=== PATIENT | male | born 1950 | race Caucasian/White ===

== ENCOUNTER → 2017-01-27 | Outpatient (CLI) | payer MEDICARE, OTHER ==
[~2017-01-27] MED LIST: ASPI81CH6 CHEW; BENA40TA PO; CYMB60CA PO; ENOX40P SQ; FIOR30CA12 PO; NIFE20 PO; PERC5TAB12 PO; TERA2CAP3 PO; TEST1INJ3 IM; TRAM50TA PO
[2017-01-27 11:12] LABS: BASOPHIL % 0.6 % (0.0-2.0); EOSINOPHIL # 0.1 TH/MM3 (0-0.4); EOSINOPHIL % 1.5 % (0.0-4.0); HEMATOCRIT 48.9 % (39.0-51.0); HEMO FLAGS DIFF FINAL; LYMPH % 26.4 % (9.0-44.0); LYMPHOCYTE # 1.7 TH/MM3 (1.0-4.8); MEAN CELL VOLUME 94.4 FL (80.0-100.0); MEAN CORPUSCULAR HGB CONC 33.9 % (32.0-36.0); MONO % 8.9 % (0.0-8.0); NEUT % 62.6 % (16.0-70.0); PLATELET COUNT 171 TH/MM3 (150-450); RED BLOOD COUNT 5.18 MIL/MM3 (4.50-5.90); RED CELL DISTRIBUTION WIDTH 13.7 % (11.6-17.2); WHITE BLOOD COUNT 6.4 TH/MM3 (4.0-11.0)
[2017-01-27 11:26] LABS: APTT (PATIENT) 28.9 SEC (24.3-30.1); INTERNATIONAL NORMALIZED RATIO 1.1 RATIO; PROTHROMBIN TIME - PATIENT 11.7 SEC (9.8-11.6)
[2017-01-27 11:48] LABS: ANION GAP 6 MEQ/L (5-15); AST (GOT) 21 U/L (15-37); BLOOD UREA NITROGEN 14 MG/DL (7-18); CHLORIDE 103 MEQ/L (98-107); GLOMERULAR FILTRATION RATE 47 ML/MIN (>89); GLUCOSE,FASTING 86 MG/DL (74-99); POTASSIUM 5.5 MEQ/L (3.5-5.1); SODIUM (NA) 139 MEQ/L (136-145)
[2017-01-27 11:49] LABS: ALT (GPT) 33 U/L (12-78)
[2017-01-27 11:51] LABS: ALKALINE PHOSPHATASE 59 U/L (45-117); TOTAL BILIRUBIN ADULT 0.7 MG/DL (0.2-1.0)
[2017-01-27 11:58] LABS: WESTERGREN SEDIMENTATION RATE 1 mm/hr (0-20)
--- NOTE | 2017-01-27 13:10 | RADRPT ---
EXAM DATE/TIME: 01/27/2017 11:31 [facility] COMPARISON: No previous studies available for comparison. INDICATIONS : Evaluate for pneumonia, pneumothorax ot comminucable disease. Pre-op left hip. MEDICAL HISTORY : Hypertension. SURGICAL HISTORY : None. ENCOUNTER: Initial ACUITY: 1 day PAIN SCORE: 0/10 LOCATION: chest FINDINGS: The heart and mediastinal structures are normal. The pulmonary vascular pattern is normal. The lungs are clear. Degenerative changes are noted throughout the thoracic spine. CONCLUSION: 1. No acute cardiopulmonary disease. 2. Degenerative changes within the thoracic spine. Micky Morales MD on January 27, 2017 at 13:07 Board Certified Radiologist. This report was verified electronically.
[2017-01-27 13:16] LABS: BLOOD, URINE NEG (NEG); GLUCOSE,URINE NEG (NEG); KETONE, URINE NEG (NEG); NITRITE,URINE NEG (NEG); PH, URINE 6.5 (5.0-8.5); URINE COLOR LIGHT-YELLOW (YELLW/STRAW)
[2017-01-27 13:17] LABS: COMMENT (UR) CULT NOT INDICATED; CULTURE IF INDICATED CULT NOT INDICATED
== END ==
LOC: CPRE 10:11
PROVIDERS: ATTEND Orthopaedic Surgery Sports Medicine
DX: Z01.811 Encounter for preprocedural respiratory examination (principal); Z01.812 Encounter for preprocedural laboratory examination; Z01.818 Encounter for other preprocedural examination; M25.50 Pain in unspecified joint; M16.12 Unilateral primary osteoarthritis, left hip; Z96.60 Presence of unspecified orthopedic joint implant; Z79.01 Long term (current) use of anticoagulants
CPT/HCPCS: 36415; 71020; 80053; 81001; 85025; 85610; 85652; 85730

== ENCOUNTER 2017-02-17 06:09 | Inpatient (IN) | payer MEDICARE, OTHER ==
[~2017-02-17] VITALS: Ht 170.2 cm; Wt 97.8 kg
[~2017-02-17 06:09] MED LIST changes: -ASPI81CH6 CHEW; -ENOX40P SQ; -PERC5TAB12 PO; -TRAM50TA PO
[2017-02-17] MEDS ORDERED: PERC5TAB12 PO (07:10)
[2017-02-17] MEDS ORDERED: ENOX40P SQ (07:10)
[2017-02-17] MEDS ORDERED: ASPI81CH6 CHEW (07:11)
[2017-02-17] MEDS ORDERED: Post-op Orders (for Pharmacy) XX ONE (07:15)
[2017-02-17] MEDS ORDERED: BISACODYL 10 MG SUPP RECTAL PRN (07:15)
[2017-02-17] MEDS ORDERED: oxyCODONE/ACETAMINOPHEN 5 MG/325 MG TAB PO PRN ×2 (07:15)
[2017-02-17] MEDS ORDERED: ZOLPIDEM TARTRATE 5 MG TAB PO PRN (07:15)
[2017-02-17] MEDS ORDERED: diphenhydrAMINE HCL 50 MG/ML VIAL IV PUSH PRN (07:15)
[2017-02-17] MEDS ORDERED: ONDANSETRON HCL 4 MG/2 ML VIAL IVP PRN (07:15)
[2017-02-17] MEDS ORDERED: METOPROLOL TARTRATE 25 MG TAB PO PRN (07:45)
[2017-02-17] MEDS ORDERED: CHLORHEXIDINE GLUCONATE 2 % 1 PACK (2 CLOTHS) TOPICAL PRN (07:45)
[2017-02-17] MEDS ORDERED: POVIDONE IODINE 5% (ANTISEPSIS KIT) 4 APPLICATIONS EACH NARE PRN (07:45)
[2017-02-17] MEDS ORDERED: LACTATED RINGER'S 1000 ML IV PRN (07:45)
[2017-02-17] MEDS ORDERED: SODIUM CHLORID 0.9% 500 ML IV PRN (07:45)
[2017-02-17] MEDS ORDERED: VANCOMYCIN 1000 MG/NS 250 ML (for <70 kg) IV SCH ×2 (08:00)
[2017-02-17] MEDS ORDERED: POVIDONE IODINE 7.5% SCRUB 118 ML BOTTLE TOPICAL SCH (08:00)
[2017-02-17] MEDS ORDERED: EXPAREL PERI-ARTICULAR INJECTION (TOTAL VOL. 60 ML) P-ARTICULR SCH ×2 (08:00)
[2017-02-17] MEDS ORDERED: CHLORHEXIDINE GLUCONATE 4% SOLN 120 ML BTL TOPICAL SCH (08:00)
[2017-02-17] MEDS ORDERED: DEXAMETHASONE SOD PHOS 20 MG/5 ML VIAL IV ONE (08:00)
[2017-02-17] MEDS ORDERED: ceFAZolin 2 GM PREMIX 50 ML IV SCH (08:00)
[2017-02-17] MEDS ORDERED: TRANEXAMIC PERI-ARTICULAR 3,000 MG/NS 100 ML P-ARTICULR SCH ×2 (08:00)
[2017-02-17] MEDS ORDERED: ACETAMINOPHEN 1000 MG/100 ML 100 ML IV ONE (08:56)
[2017-02-17] MEDS: TERAZOSIN HCL 1 MG CAP PO SCH (09:00)
[2017-02-17] MEDS: NIFEdipine 20 MG CAP PO SCH (09:00)
[2017-02-17] MEDS ORDERED: GENTAMICIN SULFATE 80 MG/2 ML VIAL ONE (09:19)
[2017-02-17] MEDS: TRANEXAMIC ACID IV SCH ×2 (09:35→11:09)
[2017-02-17] MEDS: SODIUM CHLORIDE 0.9% IV SCH ×2 (09:35→11:09)
[2017-02-17] MEDS ORDERED: ROCURONIUM INJ 50 MG/5 ML SYRINGE IV PUSH ONE (12:00)
[2017-02-17] MEDS ORDERED: PROPOFOL 200 MG/20 ML AMP IV ONE (12:00)
[2017-02-17] MEDS ORDERED: LIDOCAINE HCL 1% PF 5 ML SYRINGE OTHER ONE (12:00)
[2017-02-17] MEDS ORDERED: GLYCOPYRROLATE 1 MG/5 ML SYRINGE IV PUSH ONE (12:00)
[2017-02-17] MEDS ORDERED: LACTATED RINGER'S 1000 ML INJ 1,000 ML IV ONE (12:00)
[2017-02-17] MEDS ORDERED: MORPHINE SULFATE 4 MG/ML INJ IV ONE (12:00)
[2017-02-17] MEDS ORDERED: VECURONIUM BROMIDE 20 MG VIAL IV ONE (12:00)
[2017-02-17] MEDS ORDERED: ONDANSETRON HCL 4 MG/2 ML VIAL IV PUSH ONE (12:00)
[2017-02-17] MEDS ORDERED: MIDAZOLAM HCL 2 MG/2 ML VIAL IV ONE (12:00)
[2017-02-17] MEDS ORDERED: ePHEDrine/NS 25 MG/5 ML SYR IV ONE (12:00)
[2017-02-17] MEDS ORDERED: NEOSTIGMINE 5 MG/5 ML SYRINGE IV PUSH ONE (12:00)
--- NOTE | 2017-02-17 13:03 | MP ---
cc: OMID SEGURA M.D. DATE OF SURGERY 02/17/2017 PREOPERATIVE DIAGNOSIS Left hip osteoarthritis POSTOPERATIVE DIAGNOSES Left hip osteoarthritis PROCEDURE Left total hip arthroplasty SURGEON Dr. Omid Segura DIESEL TRUCK CRANE OPERATOR LISA Montero ANESTHESIA General ESTIMATED BLOOD LOSS 200 CC COMPLICATIONS None IMPLANTS USED DePuy Corail size 12 Press-Fit standard offset femoral stem, size 54 solid pinnacle Gription cup, 36 mm highly cross-linked neutral polyethylene liner, 36 mm ceramic head, +1.5 neck. JUSTIFICATION This patient is a 66-year-old male with a history of severe end-stage osteoarthritis involving the left hip. He has severe disabling pain with standing, walking, ambulation, weight-bearing activities, severe pain at rest that does not interfere with activities of daily living. He has failed greater than three months of nonoperative conservative treatment to include medication, therapy, ambulatory assisted aids, home exercise program, activity modification, weight loss. Weight loss. X-RAYS Left hip reveal severe end-stage osteoarthritis with uxde-ed-ereb joint space narrowing, subchondral sclerosis, subchondral cyst osteophyte formation with subluxation. The patient was counseled as to the risks, benefits and alternative to a total hip arthroplasty. The risks discussed which include, but were not limited to anesthesia, bleeding, infection, damage to nerves, blood vessels, pain, stiffness, fracture-dislocation, leg length discrepancies, blood clots, pulmonary embolism, and even . The patient's pain is severe. He favors the benefits over the risks and did wish to proceed with surgery. PROCEDURE IN DETAIL A written consent was obtained. The patient identified by name, taken to the operating room, placed supine position and general anesthesia was administered, as well as two grams of IV Ancef and one gram of IV vancomycin. The left hip and left lower extremity were prepped and draped using Isopropyl alcohol, Hibiclens solution and Chloraprep solution. After time-out was performed, a longitudinal incision was made over the anterolateral aspect of the left hip. The fascial layer was incised. Dissection was carried over the tensor fascia noris and beneath the rectus femoris to allow exposure of the anterior hip capsule. A capsulotomy incision was performed. An oscillating saw was used for the femoral neck cut. The osteoarthritic femoral head/neck component was remove. A 10 blade scalpel was used to excise the labrum. Sequential reaming began at size 49 and was carried through to size 54. Subsequently, a solid pinnacle Gription cup was implanted in approximately 45 degrees of abduction, 10 degree of anteversion. There was good purchase and fixation on insertion of the cup. A screw hole eliminator was placed followed by the neutral liner. The liner was impacted in place and tested for stability. Attention turned to the femur where the leg was externally rotated, extended and adducted. The capsule was released off the under surface of the greater trochanter to allow for elevation and lateralization of the femur. A box cutting osteotome was used to gain entrance into the intramedullary canal. This was followed by a sequential broaching up to size 12. A 12 calcar planer was used to plane the calcar. Trial head neck combinations were evaluated and final components were implanted with the current components. The leg could achieve full extension with external rotation of 70 degrees and extension down to the ground without evidence and anterior instability or impingement. Fluoroscopic imaging showed appropriate implantation of components. The soft tissue tension felt appropriate. The surgical wound was thoroughly irrigated with sterile saline pulse lavage antibiotic impregnated solution. The fascia was closed with #1 Vicryl suture, subcutaneous layer 2-0 Vicryl suture. Skin was closed Dermabond. Sterile dressings applied. The patient tolerated the procedure well. No intraoperative complications noted. Syd Yip, Physician Small Parts Assembler Certified, was present during the entire procedure to include patient positioning and the procedure itself. The medical necessity of a physician bilingual legal assistant was indicated in this case due to the complexity of the procedure. He assisted with appropriate manipulation of the leg and also retraction of muscle, tendon, bone and nerve root structures. He assisted with preparation of the bone and also implantation of the prosthetic replacement. MD WILLEM Spears/BORIS /12:34 PM /12:39 PM
[2017-02-17] MEDS: SODIUM CHLOR 0.9% 1000 ML INJ 1,000 ML IV SCH (13:15)
--- NOTE | 2017-02-17 13:17 | RADRPT ---
EXAM DATE/TIME: 02/17/2017 10:12 [facility] COMPARISON: No previous studies available for comparison. INDICATIONS : Left total hip arthroplasty. MEDICAL HISTORY : Unobtainable. SURGICAL HISTORY : Right total hip arthroplasty. ENCOUNTER: Initial ACUITY: 1 day PAIN SCORE: Non-responsive. LOCATION: Left hip FINDINGS: A two view examination of the left hip was performed. Post surgical changes following hip replacement are noted. Acetabular and femoral components are well seated and satisfactorily aligned. There are n o acute bony abnormalities. CONCLUSION: Satisfactory postoperative appearance of left hip following replacement. Stanley Ulloa MD on February 17, 2017 at 13:14 Board Certified Radiologist. This report was verified electronically.
[2017-02-17] MEDS ORDERED: *morphine SULFATE 8 MG/ML PERIprocedure ONLY ONE ×2 (13:43→14:01)
[2017-02-17] MEDS ORDERED: DO NOT ADM ANY ANTICOAGULANT DRUGS PRN (13:45)
--- NOTE | 2017-02-17 14:00 | PD.CONS ---
HPI Service [facility] Consult Requested By Reason for Consult medical management Primary Care Physician Criss Grayson MD Diagnoses: History of Present Illness patient is a 66 y/o male with history of osteoarthritis, hypertension, sleep apnea who underwent left total hip arthritis today. at the time of my evaluation he was resting comfortably with no distress. pain was mild. he was complaining of mild nausea. otherwise no other post-op acute issues. Review of Systems Constitutional: DENIES: Fever, Weight loss, Chills, Night Sweats Eyes: DENIES: Blurred vision, Diplopia, Vision loss, Double Vision Ears, nose, mouth, throat: DENIES: Tinnitus, Vertigo, Throat pain, Epistaxis Respiratory: DENIES: Apneas, Cough, Snoring, Wheezing, Hemoptysis, Sputum production, Shortness of breath Cardiovascular: DENIES: Chest pain, Palpitations, Syncope, Dyspnea on Exertion , PND, Lower Extremity Edema, Orthopnea, Claudication Gastrointestinal: COMPLAINS OF: Nausea, DENIES: Abdominal pain, Black stools, Bloody stools, Constipation, Diarrhea, Vomiting, Difficulty Swallowing, Anorexia Genitourinary: DENIES: Urinary frequency, Urgency, Hematuria, Dysuria Musculoskeletal: COMPLAINS OF: Joint pain (left hip), DENIES: Muscle aches, Stiffness, Joint Swelling Integumentary: DENIES: Rash Neurologic: DENIES: Abnormal gait, Headache, Localized weakness, Paresthesias, Seizures, Speech Problems, Tremor, Poor Balance Psychiatric: DENIES: Anxiety, Confusion, Mood changes, Depression, Hallucinations, Agitation, Suicidal Ideation, Homicidal Ideation, Delusions Past Family Social History Allergies: Coded Allergies: hydrocodone (Verified Adverse Reaction, Severe, Confusion, 02/17/17) Past Medical History hypertension sleep apnea osteoarthritis Past Surgical History right hip surgery Reported Medications cymbalta nifedipine testosterone terazosin Active Ordered Medications Current Medications Duloxetine HCl (Cymbalta Dr) 60 mg HS PO ; Start 02/17/17 at 21:00; Status UNV Nifedipine (Procardia) 60 mg DAILY PO ; Start 02/17/17 at 09:00; Status UNV Terazosin HCl (Hytrin) 2 mg DAILY PO ; Start 02/17/17 at 09:00; Status UNV Non-Formulary Medication 40 mg DAILY PO ; Start 02/17/17 at 09:00; Status UNV Sodium Chloride 1,000 ml @ 100 mls/hr Q10H IV ; Start 02/17/17 at 07:07 Cefazolin Sodium/ Dextrose 50 ml @ 100 mls/hr Q6H IV ; Start 02/17/17 at 07:15 ; Stop 02/17/17 at 19:44; Status UNV Miscellaneous Information (Post-op Orders (for Pharmacy)) STAT ONCE XX ; Start 02/17/17 at 07:15; Stop 02/17/17 at 07:16; Status UNV Enoxaparin Sodium (Lovenox Inj) 40 mg Q24H SQ ; Start 02/17/17 at 07:15; Stop 02/26/17 at 07:16; Status UNV Morphine Sulfate (Morphine Inj) 3 mg Q3H PRN IV PUSH Pain >7 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; Start 02/17/17 at 07:15; Status UNV Oxycodone/ Acetaminophen (Percocet 5-325 Mg) 1 tab Q4H PRN PO PAIN LESS THAN 5 ON SCALE; Start 02/17/17 at 07:15; Status UNV Oxycodone/ Acetaminophen (Percocet 5-325 Mg) 2 tab Q4H PRN PO PAIN SCALE 5 TO 10; Start 02/17/17 at 07:15; Status UNV Multivitamins/ Minerals Therapeutic (Theragran M Tab) 1 tab BID PO ; Start 02/23 at 21:00; Stop 04/19/17 at 20:59; Status UNV Ondansetron HCl (Zofran Inj) 4 mg Q6H PRN IVP NAUSEA OR VOMITING; Start at 07:15 Docusate Sodium (Colace) 100 mg BID PO ; Start 02/18/17 at 21:00 Zolpidem Tartrate (Ambien) 5 mg HS PRN PO SLEEP; Start 02/17/17 at 07:15 Bisacodyl (Dulcolax Supp) 10 mg DAILY PRN MS CONSTIPATION; Start 02/17/17 at 07:15; Status UNV Diphenhydramine HCl (Benadryl Inj) 25 mg Q6H PRN IV PUSH ITCHING; Start at 07:15; Status UNV Lactated Ringer's 1,000 ml @ 30 mls/hr Q24H PRN IV SEE LABEL COMMENTS Last administered on 02/17/17 08:00; Start 02/17/17 at 07:45; Stop 02/17/17 at 11 :33; Status DC Sodium Chloride 500 ml @ 30 mls/hr [id number] PRN IV SEE LABEL COMMENTS; Start at 07:45; Stop 02/17/17 at 11:33; Status DC Metoprolol Tartrate (Lopressor) 25 mg CLINICAL PSYCHIATRIST PRN PO SEE LABEL COMMENTS; Start 02/17/17 at 07:45; Stop 02/20/17 at 07:44 Povidone Iodine (Betadine 5% Antisepsis Kit) 1 applic CLINICAL PSYCHIATRIST PRN EACH NARE SEE LABEL COMMENTS Last administered on 02/17/17 08:00; Start 02/17/17 at 07: 45; Stop 02/20/17 at 07:44 Chlorhexidine Gluconate (Chlorhexidine 2% Cloth) 3 pack CLINICAL PSYCHIATRIST PRN TOPICAL SEE LABEL COMMENTS Last administered on 02/17/17 08:00; Start 02/17/17 at 07: 45; Stop 02/20/17 at 07:44 Povidone Iodine (Betadine 7.5% Scrub) 1 applic ONCE TOPICAL Last administered on 02/17/17 08:00; Start 02/17/17 at 08:00; Stop 02/20/17 at 07:59 Chlorhexidine Gluconate (Hibiclens 4% Top Soln) 1 applic ONCE TOPICAL ; Start 02/17/17 at 08:00; Stop 02/20/17 at 07:59 Cefazolin Sodium/ Dextrose 50 ml @ 100 mls/hr CLINICAL PSYCHIATRIST IV Last administered on 02/17/17 09:32; Start 02/17/17 at 08:00; Stop 02/20/17 at 07:59 Vancomycin HCl 1000 mg/Sodium Chloride 250 ml @ 250 mls/hr CLINICAL PSYCHIATRIST IV Last administered on 02/17/17 09:33; Start 02/17/17 at 08:00; Stop 02/20/17 at 07 :59 Tranexamic Acid 1467 mg/Sodium Chloride 114.67 ml @ 200 mls/ hr ONCE IV Last administered on 02/17/17 09:35; Start 02/17/17 at 08:00; Stop 02/17/17 at 16 :00 Bupivacaine Liposome 20 ml/ Sodium Chloride 60 ml @ 120 mls/hr ONCE P-ARTICULR Last administered on 02/17/17 12:20; Start 02/17/17 at 08:00; Stop at 07:59 Tranexamic Acid 3000 mg/Sodium Chloride 130 ml @ 260 mls/hr ONCE P-ARTICULR Last administered on 02/17/17 12:18; Start 02/17/17 at 08:00; Stop 02/17/17 at 16:00 Dexamethasone Sodium Phosphate (Decadron Inj) 10 mg ONCE ONCE IV Last administered on 02/17/17 09:05; Start 02/17/17 at 08:00; Stop 02/17/17 at 08 :01; Status DC Acetaminophen 100 ml @ As Directed STK-MED ONCE IV ; Start 02/17/17 at 08:56; Stop 02/17/17 at 08:57; Status DC Gentamicin Sulfate (Gentamicin Inj) 240 mg STK-MED ONCE .ROUTE Last administered on 02/17/17 11:08; Start 02/17/17 at 09:19; Stop 02/17/17 at 09 :20; Status DC Miscellaneous Information ALL NURSING DEPARTME... UNSCH PRN .XX SEE LABEL COMMENTS; Start 02/17/17 at 13:45; Stop 02/18/17 at 13:44 Morphine Sulfate (*morphine INJ PERIprocedure ONLY) 8 mg STK-MED ONCE .ROUTE ; Start 02/17/17 at 13:43; Stop 02/17/17 at 13:44; Status DC Family History not relevant to this consult. Social History no smoking. drinks occasionally. Physical Exam Vital Signs Vital Signs Date Time Temp Pulse Resp B/P (MAP) Pulse Ox O2 Delivery O2 Flow Rate FiO2 02/17/17 13:15 97.8 50 16 93/59 (70) 93 Nasal Cannula 2 02/17/17 07:30 97.8 74 20 175/92 (119) 95 Physical Exam GENERAL: This is a well-nourished, well-developed patient, in no apparent distress. SKIN: No rashes, ecchymoses or lesions. Cool and dry. HEAD: Atraumatic. Normocephalic. No temporal or scalp tenderness. EYES: Pupils equal round and reactive. Extraocular motions intact. No scleral icterus. No injection or drainage. ENT: Nose without bleeding, purulent drainage or septal hematoma. Throat without erythema, tonsillar hypertrophy or exudate. Uvula midline. Airway patent. NECK: Trachea midline. No JVD or lymphadenopathy. Supple, nontender, no meningeal signs. CARDIOVASCULAR: Regular rate and rhythm without murmurs, gallops, or rubs. RESPIRATORY: Clear to auscultation. Breath sounds equal bilaterally. No wheezes , rales, or rhonchi. GASTROINTESTINAL: Abdomen soft, non-tender, nondistended. No hepato-splenomegaly , or palpable masses. No guarding. MUSCULOSKELETAL: Extremities without clubbing, cyanosis, or edema. No joint tenderness, effusion, or edema noted. No calf tenderness. Negative Homans sign bilaterally. NEUROLOGICAL: Awake and alert. Cranial nerves II through XII intact. Motor and sensory grossly within normal limits. Five out of 5 muscle strength in all muscle groups. Normal speech. Laboratory Laboratory Tests Test 02/17/17 07:18 Potassium Level 3.8 Result Diagram: 02/17/17 0718 Imaging Last Impressions Hip X-Ray 02/17/17 0000 Signed Impressions: Service Date/Time: Friday, February 17, 2017 10:12 - CONCLUSION: Satisfactory postoperative appearance of left hip following replacement. Stanley Ulloa MD Assessment and Plan Assessment and Plan A/P - osteoarthritis- s/p left total hip arthroplasty continue with pain control and rehab efforts- management per ortho. -hypertension; resumed home meds- continue to monitor BP and adjust the regimen as needed. -sleep apnea- continue CPAP. -DVT prophylaxis with Lovenox- per ortho. thank you for the consult. Discussed Condition With the patient and RN. Patricia Bill MD Feb 17, 2017 14:00
[2017-02-17] MEDS ORDERED: DIMETHICONE/OXYBENZONE/PADMIATE LIP BALM 4.25 GM TOPICAL ONE (14:06)
[2017-02-17] MEDS ORDERED: *HYDROmorphone PF 1 MG VIAL PERIprocedural Use ONLY ONE (14:46)
--- NOTE | 2017-02-17 14:50 | RADRPT ---
EXAM DATE/TIME: 02/17/2017 13:50 [facility] COMPARISON: No previous studies available for comparison. INDICATIONS : Post op total left hip. MEDICAL HISTORY : Hypertension. SURGICAL HISTORY : None. ENCOUNTER: Initial ACUITY: 1 day PAIN SCORE: 8/10 LOCATION: Left Hip FINDINGS: Examination of the left hip was performed with AP Pelvis. Postsurgical changes following left hip rep lacement are noted. Femoral and acetabular components are well seated in satisfactory alignment. AP view of the pelvis demonstrates a right hip prosthesis. There are no acute bony abnormalities. CONCLUSION: Satisfactory post operative appearance of the left hip status post replacement. Right hip prosthesis. No acute process. Stanley Ulloa MD on February 17, 2017 at 14:47 Board Certified Radiologist. This report was verified electronically.
[2017-02-17] MEDS: ceFAZolin 2 GM PREMIX 50 ML IV SCH ×2 (15:00→21:22)
[2017-02-17 17:00] VITALS: BP 108/64; PULSE 59; RESP 19; TEMP 96.4; O2SAT 91
[2017-02-17 20:19] VITALS: BP 117/59; PULSE 69; RESP 18; TEMP 97.6; O2SAT 92
[2017-02-17] MEDS: DULoxetine HCl DR 60 MG CAP PO SCH (21:22)
[2017-02-17] MEDS: MORPHINE SULFATE 4 MG/ML INJ IV PUSH PRN (21:23)
[2017-02-18] VITALS (7 sets, daily range): BP systolic 88–176; BP diastolic 72–101; PULSE 73–123; RESP 16–19; TEMP 96.7–98.9; O2SAT 92–94
[2017-02-18] MEDS: ceFAZolin 2 GM PREMIX 50 ML IV SCH ×2 (03:15→08:35)
[2017-02-18] MEDS: SODIUM CHLOR 0.9% 1000 ML INJ 1,000 ML IV SCH ×2 (03:17→23:07)
[2017-02-18] MEDS: MORPHINE SULFATE 4 MG/ML INJ IV PUSH PRN (06:35)
[2017-02-18] MEDS: NIFEdipine 20 MG CAP PO SCH (08:34)
[2017-02-18] MEDS: TERAZOSIN HCL 1 MG CAP PO SCH (08:35)
[2017-02-18 08:39] LABS: HEMATOCRIT 37.8 % (39.0-51.0); MEAN CELL VOLUME 93.8 FL (80.0-100.0); MEAN CORPUSCULAR HEMOGLOBIN 32.2 PG (27.0-34.0); MEAN CORPUSCULAR HGB CONC 34.4 % (32.0-36.0); PLATELET COUNT 126 TH/MM3 (150-450); RED BLOOD COUNT 4.03 MIL/MM3 (4.50-5.90); RED CELL DISTRIBUTION WIDTH 13.6 % (11.6-17.2); REVIEW FLAG FINAL; WHITE BLOOD COUNT 14.3 TH/MM3 (4.0-11.0)
[2017-02-18] MEDS: LISINOPRIL 20 MG TAB PO SCH (08:41)
--- NOTE | 2017-02-18 08:42 | PD.ORT.PN ---
Subjective Post Op Day #: 1 Subjective Remarks pain tolerable Objective Vitals Vital Signs Date Time Temp Pulse Resp B/P (MAP) Pulse Ox O2 Delivery O2 Flow Rate FiO2 02/18/17 03:16 97.9 95 18 137/72 (93) 92 02/18/17 00:02 98.4 73 18 129/75 (93) 93 02/17/17 20:19 97.6 69 18 117/59 (78) 92 02/17/17 17:00 96.4 59 19 108/64 (79) 91 02/17/17 15:30 62 16 120/58 (78) 98 Room Air 02/17/17 15:00 62 16 107/55 (72) 99 Room Air 02/17/17 14:30 56 16 109/67 (81) 100 02/17/17 14:15 56 16 101/56 (71) 100 Nasal Cannula 2 02/17/17 14:00 56 16 131/81 (98) 97 Nasal Cannula 2 02/17/17 13:45 54 16 97/55 (69) 95 Nasal Cannula 2 02/17/17 13:30 50 16 97/58 (71) 95 Nasal Cannula 2 02/17/17 13:15 97.8 50 16 93/59 (70) 93 Nasal Cannula 2 I/O 02/17/17 02/17/17 02/17/17 02/18/17 02/18/17 02/18/17 07:00 15:00 23:00 07:00 15:00 23:00 Intake Total 2000 ml 910 ml 2110 ml Output Total 600 ml 400 ml 375 ml Balance 1400 ml 510 ml 1735 ml Intake Oral 360 ml 480 ml IV Total 550 ml 1630 ml Other 2000 ml Output Urine Total 400 ml 400 ml 375 ml Estimated Blood Loss 200 ml # Bowel Movements 0 0 Result Diagram: 02/18/17 0739 02/17/17 0718 Objective Remarks in bed, nad dressing c/d/i neg homans nvi Assessment & Plan Ortho Post Op Day #: 1 Problem List: Assessment and Plan s/p L PEGGY wbat ok to maintain dressing unless saturated lovenox d/c planning home, patient going to start OP PT f/up dr. hayden 2 weeks Tamir Yip Feb 18, 2017 08:42
--- NOTE | 2017-02-18 08:47 | HHI.DCPOC ---
Discharge Care Plan Diagnosis: (1) Primary localized osteoarthrosis, pelvic region and thigh Your Health Problems Are: Difficulty with ADL Goals to Promote Your Health * To prevent worsening of your condition and complications * To maintain your health at the optimal level Directions to Meet Your Goals Take your medications as prescribed Follow your dietary instruction Follow activity as directed Keep your appointments as scheduled Take your immunizations and boosters as scheduled If your symptoms worsen call your PCP, if no PCP go to Urgent Care Center or Emergency Room Smoking is Dangerous to Your Health. Avoid second hand smoke Call the 24-hour hour crisis hotline for domestic abuse at Tamir Yip Feb 18, 2017 08:46
[2017-02-18] MEDS ORDERED: TRAM50TA PO (08:48)
[2017-02-18] MEDS ORDERED: ceFAZolin 2 GM PREMIX 50 ML IV ONE (09:00)
[2017-02-18] MEDS ORDERED: PNEUMOCOCCAL POLYVALENT INJ 25 MCG/0.5 ML SYR IM ONE (10:00)
[2017-02-18] MEDS: traMADol HCL 50 MG TAB PO PRN (11:02)
[2017-02-18] MEDS: ENOXAPARIN SODIUM 40 MG/0.4 ML SYRINGE SQ SCH (12:30)
--- NOTE | 2017-02-18 13:26 | HHI.PR ---
Subjective Remarks in no acute distress. pain is moderate. had some nausea and emesis earlier. BP trend noted. overall not feeling good today. d/w the RN. Objective Vitals Vital Signs Date Time Temp Pulse Resp B/P (MAP) Pulse Ox O2 Delivery O2 Flow Rate FiO2 02/18/17 11:07 93 21 02/18/17 08:00 97.0 82 16 155/89 (111) 94 02/18/17 03:16 97.9 95 18 137/72 (93) 92 02/18/17 00:02 98.4 73 18 129/75 (93) 93 02/17/17 20:19 97.6 69 18 117/59 (78) 92 02/17/17 17:00 96.4 59 19 108/64 (79) 91 02/17/17 15:30 62 16 120/58 (78) 98 Room Air 02/17/17 15:00 62 16 107/55 (72) 99 Room Air 02/17/17 14:30 56 16 109/67 (81) 100 02/17/17 14:15 56 16 101/56 (71) 100 Nasal Cannula 2 02/17/17 14:00 56 16 131/81 (98) 97 Nasal Cannula 2 02/17/17 13:45 54 16 97/55 (69) 95 Nasal Cannula 2 02/17/17 13:30 50 16 97/58 (71) 95 Nasal Cannula 2 I/O 02/17/17 02/17/17 02/17/17 02/18/17 02/18/17 02/18/17 07:00 15:00 23:00 07:00 15:00 23:00 Intake Total 2000 ml 910 ml 2110 ml Output Total 600 ml 400 ml 375 ml Balance 1400 ml 510 ml 1735 ml Intake Oral 360 ml 480 ml IV Total 550 ml 1630 ml Other 2000 ml Output Urine Total 400 ml 400 ml 375 ml Estimated Blood Loss 200 ml # Bowel Movements 0 0 Result Diagram: 02/18/17 0739 02/17/1718 Imaging Last Impressions Hip and Pelvis X-Ray 02/17/17706 Signed Impressions: Service Date/Time: Friday, February 17, 2017 13:50 - CONCLUSION: Satisfactory post operative appearance of the left hip status post replacement. Right hip prosthesis. No acute process. Stanley Ulloa MD Hip X-Ray 02/17/17 0000 Signed Impressions: Service Date/Time: Friday, February 17, 2017 10:12 - CONCLUSION: Satisfactory postoperative appearance of left hip following replacement. Stanley Ulloa MD Objective Remarks GENERAL: This is a well-nourished, well-developed patient, in no apparent distress. CARDIOVASCULAR: Regular rate and regular rhythm without murmurs, gallops, or rubs. RESPIRATORY: Clear to auscultation. Breath sounds equal bilaterally. No wheezes , rales, or rhonchi. GASTROINTESTINAL: Abdomen soft, non-tender, nondistended. Normal, active bowel sounds MUSCULOSKELETAL: Extremities without clubbing, cyanosis, or edema. NEURO: Alert & Oriented x4 to person, place, time, situation. Moves all ext x4 Medications and IVs Inpatient Medications Bisacodyl (Dulcolax Supp) 10 mg DAILY PRN RECTAL CONSTIPATION; Start 02/17/17 at 07:15 Bupivacaine Liposome 20 ml/ Sodium Chloride 60 ml @ 120 mls/hr ONCE P-ARTICULR Last administered on 02/17/17 12:20; Start 02/17/17 at 08:00; Stop at 07:59; Status DC Cefazolin Sodium/ Dextrose 50 ml @ 100 mls/hr Q6H IV Last administered on 08:35; Start 02/18/17 at 03:00; Stop 02/18/17 at 09:29; Status DC Chlorhexidine Gluconate (Chlorhexidine 2% Cloth) 3 pack OFFICE CLERK PRN TOPICAL SEE LABEL COMMENTS Last administered on 02/17/17 08:00; Start 02/17/17 at 07: 45; Stop 02/20/17 at 07:44 Chlorhexidine Gluconate (Hibiclens 4% Top Soln) 1 applic ONCE TOPICAL ; Start 02/17/17 at 08:00; Stop 02/20/17 at 07:59 Dexamethasone Sodium Phosphate (Decadron Inj) 10 mg ONCE ONCE IV Last administered on 02/17/17 09:05; Start 02/17/17 at 08:00; Stop 02/17/17 at 08 :01; Status DC Diphenhydramine HCl (Benadryl Inj) 25 mg Q6H PRN IV PUSH ITCHING; Start at 07:15 Docusate Sodium (Colace) 100 mg BID PO ; Start 02/18/17 at 21:00 Duloxetine HCl (Cymbalta Dr) 60 mg HS PO Last administered on 02/17/17 21:22 ; Start 02/17/17 at 21:00 Enoxaparin Sodium (Lovenox Inj) 40 mg Q24H SQ Last administered on 02/18/17 12:30; Start 02/18/17 at 12:00; Stop 02/27/17 at 12:01 Lactated Ringer's 1,000 ml @ 30 mls/hr Q24H PRN IV SEE LABEL COMMENTS Last administered on 02/17/17 08:00; Start 02/17/17 at 07:45; Stop 02/17/17 at 11 :33; Status DC Lisinopril (Prinivil) 40 mg DAILY PO Last administered on 02/18/17 08:41; Start 02/18/17 at 09:00 Metoprolol Tartrate (Lopressor) 25 mg OFFICE CLERK PRN PO SEE LABEL COMMENTS; Start 02/17/17 at 07:45; Stop 02/20/17 at 07:44 Miscellaneous Information ALL NURSING DEPARTME... 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 Last administered on 02/18/17 06:35; Start 02/17/17 at 07:15 Multivitamins/ Minerals Therapeutic (Theragran M Tab) 1 tab BID PO ; Start 02/23 at 21:00; Stop 04/19/17 at 20:59 Nifedipine (Procardia) 60 mg DAILY PO Last administered on 02/18/17 08:34; Start 02/17/17 at 09:00 Ondansetron HCl (Zofran Inj) 4 mg Q6H PRN IVP NAUSEA OR VOMITING Last administered on 02/18/17 12:26; Start 02/17/17 at 07:15 Oxycodone/ Acetaminophen (Percocet 5-325 Mg) 2 tab Q4H PRN PO PAIN SCALE 5 TO 10; Start 02/17/17 at 07:15 Pneumococcal Polyvalent Vaccine (Pneumovax-23 Inj) 25 mcg ONCE ONCE IM Last administered on 02/18/17 11:06; Start 02/18/17 at 10:00; Stop 02/18/17 at 10 :01; Status DC Povidone Iodine (Betadine 5% Antisepsis Kit) 1 applic OFFICE CLERK PRN EACH NARE SEE LABEL COMMENTS Last administered on 02/17/17 08:00; Start 02/17/17 at 07: 45; Stop 02/20/17 at 07:44 Povidone Iodine (Betadine 7.5% Scrub) 1 applic ONCE TOPICAL Last administered on 02/17/17 08:00; Start 02/17/17 at 08:00; Stop 02/20/17 at 07:59 Sodium Chloride 500 ml @ 30 mls/hr [id number] PRN IV SEE LABEL COMMENTS; Start at 07:45; Stop 02/17/17 at 11:33; Status DC Terazosin HCl (Hytrin) 2 mg DAILY PO Last administered on 02/18/17 08:35; Start 02/17/17 at 09:00 Tramadol HCl (Ultram) 50 mg Q4H PRN PO PAIN SCALE 1 TO 4 Last administered on 02/18/17 11:02; Start 02/18/17 at 08:45 Tranexamic Acid 1467 mg/Sodium Chloride 114.67 ml @ 200 mls/ hr ONCE IV Last administered on 02/17/17 09:35; Start 02/17/17 at 08:00; Stop 02/17/17 at 16 :00; Status DC Tranexamic Acid 3000 mg/Sodium Chloride 130 ml @ 260 mls/hr ONCE P-ARTICULR Last administered on 02/17/17 12:18; Start 02/17/17 at 08:00; Stop 02/17/17 at 16:00; Status DC Vancomycin HCl 1000 mg/Sodium Chloride 250 ml @ 250 mls/hr OFFICE CLERK IV Last administered on 02/17/17 09:33; Start 02/17/17 at 08:00; Stop 02/20/17 at 07 :59 Zolpidem Tartrate (Ambien) 5 mg HS PRN PO SLEEP; Start 02/17/17 at 07:15 A/P Assessment and Plan A/P - osteoarthritis- s/p left total hip arthroplasty continue with pain control and rehab efforts- management per ortho. -hypertension- now BP on low side; will hold Nifedipine for now- continue IV fluid- will monitor the BP. -sleep apnea- continue CPAP. -DVT prophylaxis with Lovenox- per ortho. Discharge Planning medically not ready for discharge today. Patricia Bill MD Feb 18, 2017 13:26
[2017-02-18] MEDS ORDERED: ACETAMINOPHEN 325 MG TAB PO PRN (19:00)
[2017-02-18] MEDS: MULTIVITAMINS/MINERALS THERAPEUTIC TAB PO SCH (21:36)
[2017-02-18] MEDS: DULoxetine HCl DR 60 MG CAP PO SCH (21:36)
[2017-02-18] MEDS: DOCUSATE SODIUM 100 MG CAP PO SCH (21:36)
[2017-02-19 01:00] VITALS: BP 135/88
[2017-02-19 05:38] VITALS: BP 154/82; PULSE 105; RESP 18; TEMP 98.9; O2SAT 94
[2017-02-19 08:00] VITALS: PULSE 113; RESP 20; TEMP 97.1; O2SAT 96
--- NOTE | 2017-02-19 08:29 | PD.ORT.PN ---
Subjective Post Op Day #: 2 Subjective Remarks trouble urinating. had straight cath last night. feels the same this am. hip sore. Objective Vitals Vital Signs Date Time Temp Pulse Resp B/P (MAP) Pulse Ox O2 Delivery O2 Flow Rate FiO2 02/19/17 05:38 98.9 105 18 154/82 (106) 94 02/19/17 01:00 135/88 (104) 02/18/17 23:49 98.9 123 18 176/101 (126) 92 02/18/17 19:25 98.8 98 19 142/81 (101) 94 02/18/17 12:00 96.7 90 16 88/73 (78) 92 02/18/17 11:07 93 21 I/O 02/18/17 02/18/17 02/18/17 02/19/17 02/19/17 02/19/17 07:00 15:00 23:00 07:00 15:00 23:00 Intake Total 2110 ml 600 ml 360 ml Output Total 375 ml 275 ml Balance 1735 ml 600 ml 85 ml Intake Oral 480 ml 600 ml 360 ml IV Total 1630 ml Output Urine Total 375 ml 275 ml # Voids 1 # Bowel Movements 0 0 Result Diagram: 02/18/17 0739 02/17/17 0718 Objective Remarks in chair, nad dressing c/d/i neg homans nvi Assessment & Plan Ortho Post Op Day #: 2 Problem List: Assessment and Plan s/p L PEGGY wbat ok to maintain dressing unless saturated lovenox order bladder scan and repeat straight cath if necessary. patient takes terazosin d/c planning home, patient going to start OP PT. today or tomorrow depending on progress. f/up dr. hayden 2 weeks Tamir Yip Feb 19, 2017 08:29
[2017-02-19] MEDS: MULTIVITAMINS/MINERALS THERAPEUTIC TAB PO SCH (09:10)
[2017-02-19] MEDS: LISINOPRIL 20 MG TAB PO SCH (09:10)
[2017-02-19] MEDS: traMADol HCL 50 MG TAB PO PRN ×3 (09:10→17:10)
[2017-02-19] MEDS: TERAZOSIN HCL 1 MG CAP PO SCH (09:10)
[2017-02-19] MEDS: DOCUSATE SODIUM 100 MG CAP PO SCH (09:11)
[2017-02-19] MEDS: SODIUM CHLOR 0.9% 1000 ML INJ 1,000 ML IV SCH (09:17)
[2017-02-19 09:35] VITALS: BP 158/76
--- NOTE | 2017-02-19 11:06 | HHI.PR ---
Subjective Remarks in no acute distress. nausea and dizziness is better. had urinary retention and had to undergo straight catheterization. pain is fairly controlled. d/w the RN. Objective Vitals Vital Signs Date Time Temp Pulse Resp B/P (MAP) Pulse Ox O2 Delivery O2 Flow Rate FiO2 02/19/17 08:00 97.1 113 20 96 02/19/17 05:38 98.9 105 18 154/82 (106) 94 02/19/17 01:00 135/88 (104) 02/18/17 23:49 98.9 123 18 176/101 (126) 92 02/18/17 19:25 98.8 98 19 142/81 (101) 94 02/18/17 12:00 96.7 90 16 88/73 (78) 92 02/18/17 11:07 93 21 I/O 02/18/17 02/18/17 02/18/17 02/19/17 02/19/17 02/19/17 07:00 15:00 23:00 07:00 15:00 23:00 Intake Total 2110 ml 600 ml 360 ml Output Total 375 ml 275 ml Balance 1735 ml 600 ml 85 ml Intake Oral 480 ml 600 ml 360 ml IV Total 1630 ml Output Urine Total 375 ml 275 ml Bladder Scan Volume Amount 425 ml # Voids 1 # Bowel Movements 0 0 Result Diagram: 02/18/17 0739 02/17/17 0718 Imaging Last Impressions Hip and Pelvis X-Ray 02/17/17 0707 Signed Impressions: Service Date/Time: Friday, February 17, 2017 13:50 - CONCLUSION: Satisfactory post operative appearance of the left hip status post replacement. Right hip prosthesis. No acute process. Stanley Ulloa MD Hip X-Ray 02/17/17 0000 Signed Impressions: Service Date/Time: Friday, February 17, 2017 10:12 - CONCLUSION: Satisfactory postoperative appearance of left hip following replacement. Stanley Ulloa MD Objective Remarks GENERAL: This is a well-nourished, well-developed patient, in no apparent distress. CARDIOVASCULAR: Regular rate and regular rhythm without murmurs, gallops, or rubs. RESPIRATORY: Clear to auscultation. Breath sounds equal bilaterally. No wheezes , rales, or rhonchi. GASTROINTESTINAL: Abdomen soft, non-tender, nondistended. Normal, active bowel sounds MUSCULOSKELETAL: Extremities without clubbing, cyanosis, or edema. NEURO: Alert & Oriented x4 to person, place, time, situation. Moves all ext x4 Medications and IVs Inpatient Medications Acetaminophen (Tylenol) 650 mg Q4H PRN PO HEADACHE OR FEVER Last administered on 02/18/17 21:36; Start 02/18/17 at 19:00 Bisacodyl (Dulcolax Supp) 10 mg DAILY PRN RECTAL CONSTIPATION; Start 02/17/17 at 07:15 Bupivacaine Liposome 20 ml/ Sodium Chloride 60 ml @ 120 mls/hr ONCE P-ARTICULR Last administered on 02/17/17 12:20; Start 02/17/17 at 08:00; Stop at 07:59; Status DC Cefazolin Sodium/ Dextrose 50 ml @ 100 mls/hr ONCE ONCE IV ; Start 02/18/17 at 09:00; Stop 02/18/17 at 18:56; Status DC Chlorhexidine Gluconate (Chlorhexidine 2% Cloth) 3 pack MUSIC PUBLISHER PRN TOPICAL SEE LABEL COMMENTS Last administered on 02/17/17 08:00; Start 02/17/17 at 07: 45; Stop 02/20/17 at 07:44 Chlorhexidine Gluconate (Hibiclens 4% Top Soln) 1 applic ONCE TOPICAL ; Start 02/17/17 at 08:00; Stop 02/20/17 at 07:59 Dexamethasone Sodium Phosphate (Decadron Inj) 10 mg ONCE ONCE IV Last administered on 02/17/17 09:05; Start 02/17/17 at 08:00; Stop 02/17/17 at 08 :01; Status DC Diphenhydramine HCl (Benadryl Inj) 25 mg Q6H PRN IV PUSH ITCHING; Start at 07:15 Docusate Sodium (Colace) 100 mg BID PO Last administered on 02/19/17 09:11; Start 02/18/17 at 21:00 Duloxetine HCl (Cymbalta Dr) 60 mg HS PO Last administered on 02/18/17 21:36 ; Start 02/17/17 at 21:00 Enoxaparin Sodium (Lovenox Inj) 40 mg Q24H SQ Last administered on 02/18/17 12:30; Start 02/18/17 at 12:00; Stop 02/27/17 at 12:01 Lactated Ringer's 1,000 ml @ 30 mls/hr Q24H PRN IV SEE LABEL COMMENTS Last administered on 02/17/17 08:00; Start 02/17/17 at 07:45; Stop 02/17/17 at 11 :33; Status DC Lisinopril (Prinivil) 40 mg DAILY PO Last administered on 02/19/17 09:10; Start 02/18/17 at 09:00 Metoprolol Tartrate (Lopressor) 25 mg MUSIC PUBLISHER PRN PO SEE LABEL COMMENTS; Start 02/17/17 at 07:45; Stop 02/20/17 at 07:44 Miscellaneous Information ALL NURSING DEPARTME... UNSCH PRN .XX SEE LABEL COMMENTS; Start 02/17/17 at 13:45; Stop 02/18/17 at 13:44; Status DC Miscellaneous Information (Post-op Orders (for Pharmacy)) STAT ONCE XX ; Start 02/17/17 at 07:15; Stop 02/17/17 at 13:53; Status DC Morphine Sulfate (Morphine Inj) 3 mg Q3H PRN IV PUSH Pain >7 when off POSTAL SUPPORT EMPLOYEE Last administered on 02/18/17 06:35; Start 02/17/17 at 07:15 Multivitamins/ Minerals Therapeutic (Theragran M Tab) 1 tab BID PO Last administered on 02/19/17 09:10; Start 02/18/17 at 21:00; Stop 04/19/17 at 20: 59 Nifedipine (Procardia) 60 mg DAILY PO Last administered on 02/18/17 08:34; Start 02/17/17 at 09:00; Status Future Hold Ondansetron HCl (Zofran Inj) 4 mg Q6H PRN IVP NAUSEA OR VOMITING Last administered on 02/18/17 12:26; Start 02/17/17 at 07:15 Oxycodone/ Acetaminophen (Percocet 5-325 Mg) 2 tab Q4H PRN PO PAIN SCALE 5 TO 10; Start 02/17/17 at 07:15 Pneumococcal Polyvalent Vaccine (Pneumovax-23 Inj) 25 mcg ONCE ONCE IM Last administered on 02/18/17 11:06; Start 02/18/17 at 10:00; Stop 02/18/17 at 10 :01; Status DC Povidone Iodine (Betadine 5% Antisepsis Kit) 1 applic MUSIC PUBLISHER PRN EACH NARE SEE LABEL COMMENTS Last administered on 02/17/17 08:00; Start 02/17/17 at 07: 45; Stop 02/20/17 at 07:44 Povidone Iodine (Betadine 7.5% Scrub) 1 applic ONCE TOPICAL Last administered on 02/17/17 08:00; Start 02/17/17 at 08:00; Stop 02/20/17 at 07:59 Sodium Chloride 500 ml @ 30 mls/hr [id number] PRN IV SEE LABEL COMMENTS; Start at 07:45; Stop 02/17/17 at 11:33; Status DC Terazosin HCl (Hytrin) 2 mg DAILY PO Last administered on 02/19/17 09:10; Start 02/17/17 at 09:00 Tramadol HCl (Ultram) 50 mg Q4H PRN PO PAIN SCALE 1 TO 4 Last administered on 02/19/17 09:10; Start 02/18/17 at 08:45 Tranexamic Acid 1467 mg/Sodium Chloride 114.67 ml @ 200 mls/ hr ONCE IV Last administered on 02/17/17 09:35; Start 02/17/17 at 08:00; Stop 02/17/17 at 16 :00; Status DC Tranexamic Acid 3000 mg/Sodium Chloride 130 ml @ 260 mls/hr ONCE P-ARTICULR Last administered on 02/17/17 12:18; Start 02/17/17 at 08:00; Stop 02/17/17 at 16:00; Status DC Vancomycin HCl 1000 mg/Sodium Chloride 250 ml @ 250 mls/hr MUSIC PUBLISHER IV Last administered on 02/17/17 09:33; Start 02/17/17 at 08:00; Stop 02/20/17 at 07 :59 Zolpidem Tartrate (Ambien) 5 mg HS PRN PO SLEEP; Start 02/17/17 at 07:15 A/P Assessment and Plan A/P - osteoarthritis- s/p left total hip arthroplasty continue with pain control and rehab efforts- management per ortho. -hypertension- BP was low side; held Nifedipine - continue IV fluid- will monitor the BP. -urinary retention- straight cath as needed- will recheck bladder scan later this afternoon if he doesn't void. continue Hytrin. -sleep apnea- continue CPAP. -DVT prophylaxis with Lovenox- per ortho. Patricia Bill MD Feb 19, 2017 11:06
[2017-02-19 12:00] VITALS: BP 147/85; PULSE 93; RESP 20; TEMP 98.4; O2SAT 94
[2017-02-19] MEDS: ENOXAPARIN SODIUM 40 MG/0.4 ML SYRINGE SQ SCH (13:08)
--- NOTE | 2017-02-19 13:09 | HHI.FF ---
Face to Face Verification Diagnosis: (1) Primary localized osteoarthrosis, pelvic region and thigh Physical Therapy Gait training, Safety evaluation, Transfer training, bed to chair Hip: Total hip Left LE Weight Bearing: WB as tolerated Nursing RN: 3 days/week x 2 weeks Nursing: Tiff teaching, Dressing changes Dressing Changes: Daily dressing change Additional Instructions ok to maintain dressing unless saturated I have seen patient Joel Monk on 02/19/17. My clinical findings support the need for the requested home health care services because: Limited ability to care for self High risk of falls I certify that my clinical findings support that this patient is homebound because: Post-op weakness Unsteady gait/balance Tamir Yip Feb 19, 2017 13:09
[2017-02-19 17:19] LABS: HEMATOCRIT 38.6 % (39.0-51.0); MEAN CELL VOLUME 93.9 FL (80.0-100.0); MEAN CORPUSCULAR HEMOGLOBIN 31.6 PG (27.0-34.0); MEAN CORPUSCULAR HGB CONC 33.7 % (32.0-36.0); PLATELET COUNT 137 TH/MM3 (150-450); RED BLOOD COUNT 4.11 MIL/MM3 (4.50-5.90); RED CELL DISTRIBUTION WIDTH 13.5 % (11.6-17.2); REVIEW FLAG FINAL; WHITE BLOOD COUNT 13.8 TH/MM3 (4.0-11.0)
== END 2017-02-19 17:20 | disposition home health service (06) | DRG 470 ==
LOC: HSDI 06:09 → EDUNIT# 10:00 → N06B 16:25
PROVIDERS: ADMIT Orthopaedic Surgery Sports Medicine; ATTEND Orthopaedic Surgery Sports Medicine
PROC: 0SRB04A Replacement of Left Hip Joint with Ceramic on Polyethylene Synthetic Substitute, Uncemented, Open Approach (ICD-10-PCS; principal; 2017-02-17 09:34)
DX: M16.12 Unilateral primary osteoarthritis, left hip (principal); Z96.641 Presence of right artificial hip joint; I10 Essential (primary) hypertension; G47.30 Sleep apnea, unspecified; R42 Dizziness and giddiness; R33.9 Retention of urine, unspecified; R11.2 Nausea with vomiting, unspecified; Z23 Encounter for immunization
CPT/HCPCS: 73502; 76000; 84132; 85027; 86850; 86900; 86901; 90732; 94150; C1776; C9290; J0131; J0690; J1100; J1170; J1580; J1650; J2250; J2270; J2405; J2710; J3010; J3370; J7030; J7050; J7120

== ENCOUNTER 2017-02-21 14:51 | Emergency (ER) | payer MEDICARE, OTHER ==
[~2017-02-21] VITALS: Ht 170.2 cm; Wt 100.0 kg
[~2017-02-21 14:51] MED LIST changes: +ASPI81CH6 CHEW; +ENOX40P SQ; +TRAM50TA PO
[2017-02-21 14:53] VITALS: BP 145/76; PULSE 82; RESP 16; TEMP 98.2; O2SAT 97
--- NOTE | 2017-02-21 16:20 | PD ---
HPI Chief Complaint: Medical Clearance Time Seen by Provider: 15:48 Travel History International Travel<30 days: No Contact w/Intl Traveler<30days: No Traveled to known affect area: No History of Present Illness HPI Patient is a 66-year-old male who comes in because he is having difficulty urinating. He also complains of hiccups. He had a hip replacement done 4 days ago, and says he has had difficulty urinating since then. He does have history of BPH. He says he can express some urine if he pushes on his bladder. He denies fever or chills. He says the hiccups of been coming and going. He denies any pain. PFSH Past Medical History Hx Anticoagulant Therapy: Yes Cancer: No Cardiovascular Problems: Yes Diabetes: No Diminished Hearing: No Endocrine: Yes Genitourinary: No Hepatitis: No Hiatal Hernia: No Hypertension: Yes Immune Disorder: No Medical other: No Musculoskeletal: Yes (previous injury, previous neck surgery) Neurologic: Yes (numbness and tingling in hands) Psychiatric: Yes Reproductive: No Respiratory: Yes (cpap machine) Sleep Apnea: Yes Thyroid Disease: Yes (currently not on any meds) Tetanus Vaccination: Unknown Influenza Vaccination: Yes Past Surgical History AICD: No Body Medical Devices: hardware in neck, Joint Replacement: Yes (R hip 2014 ,L hip 2016, L knee 2011 , ) Neurologic Surgery: Yes (neck surgery with plates ) Pacemaker: No Other Surgery: Yes (R UPPER THIGH SURGERY ) Social History Alcohol Use: Yes Tobacco Use: No Substance Use: No Allergies-Medications (Allergen,Severity, Reaction): Coded Allergies: hydrocodone (Verified Adverse Reaction, Severe, Confusion, 02/21/17) Reported Meds & Prescriptions Reported Meds & Active Scripts Active Reglan (Metoclopramide HCl) 10 Mg Tab 10 Mg PO QID PRN Tramadol (Tramadol HCl) 50 Mg Tab 50 Mg PO Q4H PRN Aspirin Low Dose (Aspirin) 81 Mg Chew 81 Mg CHEW BID 30 Days Lovenox Inj (Enoxaparin Sodium) 40 Mg/0.4 Ml Syr 40 Mg SQ DAILY Reported Fiorinal-Codeine #3 (Nvmlwhjwvw-Rakdlpr-Qplphlcf-Codeine) 01-598-26-30 Mg Cap 1- 2 Cap PO Q4H PRN Do not exceed 6 capsules/day. Testosterone Cypionate Inj (Testosterone Cypionate) 100 Mg/Ml Inj 200 Mg IM DIRECTED Terazosin (Terazosin HCl) 2 Mg Cap 2 Mg PO DAILY Benazepril (Benazepril HCl) 40 Mg Tab 40 Mg PO DAILY Nifedipine 20 Mg Cap 60 Mg PO DAILY Cymbalta DR (Duloxetine HCl) 60 Mg Capdr 60 Mg PO HS Review of Systems General / Constitutional: No: Fever, Chills HENT: No: Headaches, Lightheadedness Cardiovascular: No: Chest Pain or Discomfort Respiratory: No: Shortness of Breath Gastrointestinal: No: Nausea, Vomiting, Abdominal Pain Genitourinary: Positive: Dysuria, Decreased Urinary Output Skin: No Rash, No Change in Pigmentation Neurologic: No: Weakness, Dizziness Physical Exam Narrative GENERAL: Awake and alert, in no acute distress. SKIN: Focused skin assessment warm/dry. HEAD: Atraumatic. Normocephalic. EYES: Pupils equal and round. No scleral icterus. No injection or drainage. ENT: Mucous membranes pink and moist. CARDIOVASCULAR: Regular rate and rhythm. No murmur appreciated. RESPIRATORY: No accessory muscle use. Clear to auscultation. Breath sounds equal bilaterally. GASTROINTESTINAL: Abdomen soft, non-tender, nondistended. No CVA tenderness. MUSCULOSKELETAL: No obvious deformities. No clubbing. No cyanosis. NEUROLOGICAL: Awake and alert. No obvious cranial nerve deficits. Motor grossly within normal limits. Normal speech. Data Data Last Documented VS Vital Signs Date Time Temp Pulse Resp B/P (MAP) Pulse Ox O2 Delivery O2 Flow Rate FiO2 02/21/17 18:00 80 17 144/72 (96) 96 02/21/17 14:53 98.2 Orders Orders Urinary Catheter Insert/Apply (02/21/17 16:06) Urinalysis - C+S If Indicated (02/21/17 16:06) Complete Blood Count With Diff (02/21/17 16:06) Basic Metabolic Panel (Bmp) (02/21/17 16:06) Metoclopramide (Reglan) (02/21/17 17:45) Ed Discharge Order (02/21/17 17:41) Labs Laboratory Tests Test 02/21/17 16:30 02/21/17 16:35 White Blood Count 9.3 TH/MM3 Red Blood Count 4.36 MIL/MM3 Hemoglobin 13.8 GM/DL Hematocrit 40.7 % Mean Corpuscular Volume 93.4 FL Mean Corpuscular Hemoglobin 31.5 PG Mean Corpuscular Hemoglobin Concent 33.8 % Red Cell Distribution Width 13.2 % Platelet Count 165 TH/MM3 Mean Platelet Volume 8.9 FL Neutrophils (%) (Auto) 66.7 % Lymphocytes (%) (Auto) 19.3 % Monocytes (%) (Auto) 12.5 % Eosinophils (%) (Auto) 1.1 % Basophils (%) (Auto) 0.4 % Neutrophils # (Auto) 6.2 TH/MM3 Lymphocytes # (Auto) 1.8 TH/MM3 Monocytes # (Auto) 1.2 TH/MM3 Eosinophils # (Auto) 0.1 TH/MM3 Basophils # (Auto) 0.0 TH/MM3 CBC Comment DIFF FINAL Differential Comment Blood Urea Nitrogen 27 MG/DL Creatinine 1.14 MG/DL Random Glucose 104 MG/DL Calcium Level 10.2 MG/DL Sodium Level 140 MEQ/L Potassium Level 3.8 MEQ/L Chloride Level 104 MEQ/L Carbon Dioxide Level 30.6 MEQ/L Anion Gap 5 MEQ/L Estimat Glomerular Filtration Rate 64 ML/MIN Urine Color YELLOW Urine Turbidity CLEAR Urine pH 6.5 Urine Specific [place] 1.017 Urine Protein 30 mg/dL Urine Glucose (UA) 70 mg/dL Urine Ketones TRACE mg/dL Urine Occult Blood NEG Urine Nitrite NEG Urine Bilirubin NEG Urine Urobilinogen LESS THAN 2.0 MG/DL Urine Leukocyte Esterase NEG Urine WBC 1 /hpf Urine Mucus FEW /lpf Microscopic Urinalysis Comment CATH-CULT NOT IND MDM Medical Decision Making Medical Screen Exam Complete: Yes Emergency Medical Condition: Yes Medical Record Reviewed: Yes Differential Diagnosis Urinary retention versus UTI versus renal failure Narrative Course Patient is a 66-year-old male who comes in because he is unable to urinate. Exam shows no abdominal tenderness, no CVA tenderness. Urinary catheter placed. Urine sent for urinalysis. Moore is within normal limits. Urinalysis is negative for infection. Patient given Reglan to try and help with his hiccups. Discharged with Ray in place. Advised follow-up with urology. Advised to return to the ED as needed for any worsening symptoms. Diagnosis Primary Impression: Urinary obstruction Additional Impression: Hiccups Referrals: Junaid Milian MD call for appointment Patient Instructions: Ray Catheter Placement and Care (ED), General Instructions, Urinary Retention in Men (ED) Additional Instructions: Follow-up with urology. He can try Reglan for her headache. Drink plenty of fluids. Return to the ED as needed for any worsening symptoms. Scripts Metoclopramide (Reglan) 10 Mg Tab 10 MG PO QID Y for HICCOUGHS, #7 TAB 0 Refills Prov: Britt Herrmann MD 02/21/17 Disposition: 01 DISCHARGE HOME Condition: Stable Britt Herrmann MD Feb 21, 2017 16:20
[2017-02-21 16:48] LABS: AUTOMATED NEUTROPHIL # 6.2 TH/MM3 (1.8-7.7); BASOPHIL % 0.4 % (0.0-2.0); EOSINOPHIL # 0.1 TH/MM3 (0-0.4); EOSINOPHIL % 1.1 % (0.0-4.0); HEMATOCRIT 40.7 % (39.0-51.0); HEMOGLOBIN 13.8 GM/DL (13.0-17.0); LYMPH % 19.3 % (9.0-44.0); LYMPHOCYTE # 1.8 TH/MM3 (1.0-4.8); MEAN CELL VOLUME 93.4 FL (80.0-100.0); MEAN CORPUSCULAR HEMOGLOBIN 31.5 PG (27.0-34.0); MEAN CORPUSCULAR HGB CONC 33.8 % (32.0-36.0); MEAN PLATELET VOLUME 8.9 FL (7.0-11.0); MONO % 12.5 % (0.0-8.0); MONOCYTE # 1.2 TH/MM3 (0-0.9); NEUT % 66.7 % (16.0-70.0); PLATELET COUNT 165 TH/MM3 (150-450); RED BLOOD COUNT 4.36 MIL/MM3 (4.50-5.90); RED CELL DISTRIBUTION WIDTH 13.2 % (11.6-17.2); WHITE BLOOD COUNT 9.3 TH/MM3 (4.0-11.0)
[2017-02-21 17:12] LABS: BILIRUBIN, URINE NEG (NEG); BLOOD, URINE NEG (NEG); GLUCOSE,URINE 70 mg/dL (NEG); KETONE, URINE TRACE mg/dL (NEG); MUCUS URINE FEW /lpf (OCC); NITRITE,URINE NEG (NEG); PH, URINE 6.5 (5.0-8.5); URINE COLOR YELLOW (YELLW/STRAW); URINE LEUKOCYTE ESTERASE NEG (NEG)
[2017-02-21 17:15] LABS: BICARBONATE 30.6 MEQ/L (21.0-32.0); CALCIUM 10.2 MG/DL (8.5-10.1); CREATININE 1.14 MG/DL (0.60-1.30)
[2017-02-21] MEDS ORDERED: REGL10TA5 PO (17:41)
[2017-02-21] MEDS ORDERED: METOCLOPRAMIDE HCL 10 MG TAB PO ONE (17:45)
[2017-02-21 18:00] VITALS: BP 144/72
== END 2017-02-21 18:00 | disposition home or self-care (01) ==
LOC: NEPE 14:51
DX: N13.9 Obstructive and reflux uropathy, unspecified (principal); R06.6 Hiccough; I10 Essential (primary) hypertension; G47.30 Sleep apnea, unspecified; E07.9 Disorder of thyroid, unspecified; Z79.82 Long term (current) use of aspirin; Z79.899 Other long term (current) drug therapy; Z88.5 Allergy status to narcotic agent
CPT/HCPCS: 51702; 80048; 81001; 85025